=== PATIENT | male | born 1960 | race Caucasian/White ===

== ENCOUNTER 2018-12-08 16:29 | Inpatient (IN) | payer MEDICAID, OTHER ==
[~2018-12-08 16:29] MED LIST: ETOMIDATE 20 MG INJ; ROCURONIUM 50 MG INJ
[2018-12-08 17:23] LABS: ABNORMAL IP MESSAGE 1; HEMATOCRIT 32.2 % (42.0-52.0); HEMOGLOBIN 10.7 g/dl (14.0-18.0); MEAN CORPUSCULAR HEMOGLOBIN 32.9 pg (29.0-33.0); MEAN CORPUSCULAR HGB CONC 33.2 g/dl (32.0-37.0); MEAN CORPUSCULAR VOLUME 99.1 fl (82.0-101.0); MEAN PLATELET VOLUME 10.7 fl (7.4-10.4); PLATELET COUNT 36 10^3/UL (140-415); POSITIVE DIFF @See below; RED BLOOD COUNT 3.25 10^6/ul (4.70-6.10)
[2018-12-08 17:23] LABS: WHITE BLOOD COUNT 3.7 10^3/ul (4.8-10.8)
[2018-12-08 17:33] LABS: ADD MAN DIFF? YES; PATH REVIEW? YES
[2018-12-08] MEDS: SOD CHLORIDE 0.9% 2,430 ML IV (17:40)
[2018-12-08 17:43] LABS: INR 2.18; PARTIAL THROMBOPLASTIN TIME 40.5 Sec (23.0-35.0); PROTIME 24.3 Sec (11.9-14.9); PT RATIO 1.9
[2018-12-08] MEDS: PIPER-TAZO 3.375 GM IV (PMX) 100 ML IVPB (17:43)
[2018-12-08 17:56] LABS: AMMONIA 283 umol/l (9-30)
[2018-12-08 17:57] LABS: ALANINE AMINOTRANSFERASE 41 IU/L (13-69); ALBUMIN 2.5 g/dl (3.3-4.9); ALBUMIN/GLOBULIN RATIO 0.62; ALKALINE PHOSPHATASE 188 IU/L (42-121); ANION GAP 9 (5-13); ASPARTATE AMINO TRANSFERASE 53 IU/L (15-46); BILIRUBIN,INDIRECT 3.1 mg/dl (0-1.1); BILIRUBIN,TOTAL 3.1 mg/dl (0.2-1.3); BLOOD UREA NITROGEN 16 mg/dl (7-20); CALCIUM 8.1 mg/dl (8.4-10.2); CARBON DIOXIDE 18 mmol/L (21-31); CHLORIDE 113 mmol/L (97-110); CREATININE 0.54 mg/dl (0.61-1.24); Estimated GFR > 60 mL/min (>60); GLUCOSE 121 mg/dl (70-220); POTASSIUM 4.6 mmol/L (3.5-5.1); SODIUM 140 mmol/L (135-144); TOTAL PROTEIN 6.5 g/dl (6.1-8.1)
[2018-12-08 18:03] LABS: ETHANOL < 10.0 mg/dl (0-0)
[2018-12-08 18:08] LABS: TROPONIN-I < 0.012 ng/ml (0.000-0.120)
[2018-12-08 18:31] LABS: ANISOCYTOSIS 1+ (0-0); BAND NEUTROPHILS % (M) 1 % (0-4); EOSINOPHILS % (M) 3 % (0-7); GIANT THROMBO% (M) 4 % (0-0); LYMPHOCYTES #M 0.2 10^3/ul (0.8-2.9); LYMPHOCYTES % (M) 8 % (15-51); MONOCYTE #M 0.5 10^3/ul (0.3-0.9); MONOCYTES % (M) 15 % (0-11); PLATELET ESTIMATE SIG DECREASED; PLATELET MORPHOLOGY COMMENT @See below; POIKILOCYTOSIS 3+ (0-0); SEG NEUT #M 2.7 10^3/ul (1.6-7.5); SEGMENTED NEUTROPHILS (M) % 73 % (39-77); SMUDGE%M 15 % (0-0)
[2018-12-08] MEDS: MIDAZOLAM 1 MG/ML 2 ML INJ IV (18:56)
[2018-12-08] MEDS: HUMAN PROTHROMBIN COMPLX IV (22:08)
[2018-12-08] MEDS: EVAC CONTAINER IV (22:08)
[2018-12-08 22:38] LABS: AADO2 Arterial 352.7 mmHg (7.0-24.0); Allen Test ACCEPTAB; Arterial Base Excess -3.6 mmol/L (-3.0-3); Arterial Blood Gas Oxygen Sat 99.3 mmHG (95.0-98.0); Arterial COHb 0.3 % (0.0-3.0); Arterial Fraction of Oxyhgb 98.8 % (93.0-99.0); Arterial HCO3 17.9 mmol/L (22.0-26.0); Arterial MetHb 0.2 % (0.0-1.5); Arterial pCO2 22.7 mmhg (35-45); Blood Gas Low PEEP Setting 0 cmH2O; MODE VENT - AC; Site Left Radial
[2018-12-08 22:46] LABS: ADD UMIC NO; UR ASCORBIC ACID NEGATIVE (NEGATIVE); UR BILIRUBIN (Dip) NEGATIVE (NEGATIVE); UR BLOOD (Dip) NEGATIVE (NEGATIVE); UR CLARITY CLEAR (CLEAR); UR COLOR YELLOW (YELLOW); UR GLUCOSE (Dip) NEGATIVE (NEGATIVE); UR KETONES (Dip) NEGATIVE (NEGATIVE); UR LEUKOCYTE ESTERASE (Dip) NEGATIVE Leu/ul (NEGATIVE); UR NITRITE (Dip) NEGATIVE (NEGATIVE); UR TOTAL PROTEIN (Dip) NEGATIVE (NEGATIVE); UR UROBILINOGEN (Dip) 1+ mg/dL (NEGATIVE)
[2018-12-08 22:53] LABS: LACTIC ACID 2.3 mmol/L (0.5-2.0)
[2018-12-08] MEDS ORDERED: IPRATROPIUM (HFA) 12.9 GM INHALER INH (23:00)
[2018-12-08] MEDS ORDERED: ALBUTEROL HFA 8 GM INHALER INH (23:00)
[2018-12-08] MEDS: PROPOFOL 100 ML IV (23:02)
[2018-12-08 23:34] LABS: AMPHETAMINE/METHAMPHETAMINE NEGATIVE (NEGATIVE); BARBITURATES NEGATIVE (NEGATIVE); BENZODIAZEPINES POSITIVE (NEGATIVE); CANNABINOIDS NEGATIVE (NEGATIVE); COCAINE NEGATIVE (NEGATIVE); OPIATES NEGATIVE (NEGATIVE)
[2018-12-09] MEDS: LACTULOSE 30ML CUP NGT ×4 (00:29→22:15)
[2018-12-09 04:30] LABS: TYPE AND SCREEN 1 1
[2018-12-09] MEDS: PHYTONADIONE 5 MG in DEXTROSE 5% 50 ML IVPB (05:10)
[2018-12-09] MEDS: PANTOPRAZOLE 40 MG INJ IV (05:15)
[2018-12-09] MEDS: PROPOFOL 100 ML IV ×3 (05:47→20:50)
[2018-12-09 06:11] LABS: TYPE AND SCREEN 1
[2018-12-09 06:18] LABS: AADO2 Arterial 94.2 mmHg (7.0-24.0); Allen Test ACCEPTAB; Arterial Base Excess -2.9 mmol/L (-3.0-3); Arterial Blood Gas Oxygen Sat 98.6 mmHG (95.0-98.0); Arterial COHb 0.3 % (0.0-3.0); Arterial HCO3 19.8 mmol/L (22.0-26.0); Arterial MetHb 0.3 % (0.0-1.5); Arterial pCO2 27.2 mmhg (35-45); MODE VENT - AC; Site Right Radial
[2018-12-09 08:59] LABS: ADD MAN DIFF? NO
[2018-12-09 09:03] LABS: ABNORMAL IP MESSAGE 1; BASOPHILS % 0.8 % (0.0-2.0); EOSINOPHILS # 0.2 10^3/ul (0.0-0.5); EOSINOPHILS % 5.7 % (0.0-7.0); HEMATOCRIT 27.2 % (42.0-52.0); HEMOGLOBIN 8.6 g/dl (14.0-18.0); LYMPHOCYTES # 0.4 10^3/ul (0.8-2.9); LYMPHOCYTES % 14.2 % (15.0-51.0); MEAN CORPUSCULAR HEMOGLOBIN 32.5 pg (29.0-33.0); MEAN CORPUSCULAR HGB CONC 31.6 g/dl (32.0-37.0); MEAN CORPUSCULAR VOLUME 102.6 fl (82.0-101.0); MEAN PLATELET VOLUME 11.1 fl (7.4-10.4); MONOCYTE # 0.4 10^3/ul (0.3-0.9); MONOCYTES % 15.7 % (0.0-11.0); NEUTROPHIL # 1.7 10^3/ul (1.6-7.5); NEUTROPHILS % 63.2 % (39.0-77.0); PLATELET COUNT 38 10^3/UL (140-415); POSITIVE DIFF @See below; RED BLOOD COUNT 2.65 10^6/ul (4.70-6.10); RED CELL DISTRIBUTION WIDTH 17.7 % (11.5-14.5)
[2018-12-09 09:03] LABS: WHITE BLOOD COUNT 2.6 10^3/ul (4.8-10.8)
[2018-12-09 09:21] LABS: IRON 62 ug/dl (35-150)
[2018-12-09 09:22] LABS: INR 1.56; PROTIME 18.8 Sec (11.9-14.9); PT RATIO 1.5
[2018-12-09 09:23] LABS: PARTIAL THROMBOPLASTIN TIME 39.4 Sec (23.0-35.0)
[2018-12-09 09:31] LABS: % IRON SATURATION 24 % SAT (22-52); TOTAL IRON BINDING CAPACITY 262 ug/dl (241-421)
[2018-12-09 09:33] LABS: ALANINE AMINOTRANSFERASE 38 IU/L (13-69); ALBUMIN 2.6 g/dl (3.3-4.9); ALKALINE PHOSPHATASE 144 IU/L (42-121); ANION GAP 7 (5-13); ASPARTATE AMINO TRANSFERASE 49 IU/L (15-46); BILIRUBIN,INDIRECT 2.9 mg/dl (0-1.1); BILIRUBIN,TOTAL 2.9 mg/dl (0.2-1.3); BLOOD UREA NITROGEN 15 mg/dl (7-20); CALCIUM 8.3 mg/dl (8.4-10.2); CARBON DIOXIDE 19 mmol/L (21-31); CHLORIDE 116 mmol/L (97-110); Estimated GFR > 60 mL/min (>60); GLUCOSE 70 mg/dl (70-220); MAGNESIUM 1.9 mg/dl (1.7-2.5); PHOSPHORUS 3.8 mg/dl (2.5-4.9); SODIUM 142 mmol/L (135-144); TOTAL PROTEIN 6.3 g/dl (6.1-8.1)
[2018-12-09 09:58] LABS: FERRITIN 50.8 ng/ml (11.1-264.0)
[2018-12-09 10:28] LABS: LACTIC ACID 1.9 mmol/L (0.5-2.0)
[2018-12-09 10:28] LABS: FOLATE 10.7 ng/ml (2.8-20.0)
[2018-12-09 16:00] LABS: WHITE BLOOD COUNT 2.8 10^3/ul (4.8-10.8)
[2018-12-09 16:00] LABS: ABNORMAL IP MESSAGE 1; HEMOGLOBIN 9.6 g/dl (14.0-18.0); MEAN CORPUSCULAR HEMOGLOBIN 33.2 pg (29.0-33.0); MEAN CORPUSCULAR VOLUME 103.8 fl (82.0-101.0); MEAN PLATELET VOLUME 10.6 fl (7.4-10.4); PLATELET COUNT 62 10^3/UL (140-415); POSITIVE DIFF @See below; RED BLOOD COUNT 2.89 10^6/ul (4.70-6.10); RED CELL DISTRIBUTION WIDTH 17.4 % (11.5-14.5)
[2018-12-09 16:17] LABS: ADD MAN DIFF? YES
[2018-12-09 16:59] LABS: ANISOCYTOSIS 1+ (0-0); BAND NEUTROPHILS % (M) 1 % (0-4); BURR CELLS 1+ (0-0); EOSINOPHILS % (M) 10 % (0-7); LYMPHOCYTES #M 0.3 10^3/ul (0.8-2.9); LYMPHOCYTES % (M) 13 % (15-51); MONOCYTE #M 0.3 10^3/ul (0.3-0.9); MONOCYTES % (M) 13 % (0-11); POIKILOCYTOSIS 3+ (0-0); POLYCHROMASIA 1+ (0-0); SEG NEUT #M 1.6 10^3/ul (1.6-7.5); SEGMENTED NEUTROPHILS (M) % 62 % (39-77); SMUDGE%M 16 % (0-0)
[2018-12-10] MEDS: LACTULOSE 30ML CUP NGT ×5 (01:13→23:50)
[2018-12-10 05:35] LABS: WHITE BLOOD COUNT 2.5 10^3/ul (4.8-10.8)
[2018-12-10 05:35] LABS: ABNORMAL IP MESSAGE 1; ADD MAN DIFF? NO; BASOPHILS % 1.2 % (0.0-2.0); EOSINOPHILS # 0.1 10^3/ul (0.0-0.5); EOSINOPHILS % 5.2 % (0.0-7.0); HEMATOCRIT 28.1 % (42.0-52.0); HEMOGLOBIN 9.1 g/dl (14.0-18.0); LYMPHOCYTES # 0.4 10^3/ul (0.8-2.9); LYMPHOCYTES % 15.2 % (15.0-51.0); MEAN CORPUSCULAR HEMOGLOBIN 33.2 pg (29.0-33.0); MEAN CORPUSCULAR HGB CONC 32.4 g/dl (32.0-37.0); MEAN CORPUSCULAR VOLUME 102.6 fl (82.0-101.0); MEAN PLATELET VOLUME 11.1 fl (7.4-10.4); MONOCYTE # 0.4 10^3/ul (0.3-0.9); MONOCYTES % 17.6 % (0.0-11.0); NEUTROPHIL # 1.5 10^3/ul (1.6-7.5); NEUTROPHILS % 60.4 % (39.0-77.0); PLATELET COUNT 53 10^3/UL (140-415); POSITIVE DIFF @See below; RED BLOOD COUNT 2.74 10^6/ul (4.70-6.10); RED CELL DISTRIBUTION WIDTH 17.2 % (11.5-14.5)
[2018-12-10 05:43] LABS: INR 1.68; PROTIME 19.9 Sec (11.9-14.9); PT RATIO 1.6
[2018-12-10] MEDS: PANTOPRAZOLE 40 MG INJ IV (05:48)
[2018-12-10 06:04] LABS: AMMONIA 83 umol/l (9-30)
[2018-12-10 07:35] LABS: Allen Test ACCEPTAB; Arterial Base Excess -3.3 mmol/L (-3.0-3); Arterial Blood Gas Oxygen Sat 97.6 mmHG (95.0-98.0); Arterial COHb 0.3 % (0.0-3.0); Arterial Fraction of Oxyhgb 97.2 % (93.0-99.0); Arterial HCO3 19.9 mmol/L (22.0-26.0); Arterial MetHb 0.1 % (0.0-1.5); Arterial pCO2 29.3 mmhg (35-45); MODE VENT - AC; Site Right Radial
[2018-12-10 10:30] LABS: MAGNESIUM 1.8 mg/dl (1.7-2.5)
[2018-12-10 10:30] LABS: PHOSPHORUS 4.3 mg/dl (2.5-4.9)
[2018-12-10 10:31] LABS: ANION GAP 7 (5-13); BLOOD UREA NITROGEN 17 mg/dl (7-20); CALCIUM 8.5 mg/dl (8.4-10.2); CARBON DIOXIDE 19 mmol/L (21-31); CHLORIDE 118 mmol/L (97-110); CREATININE 0.61 mg/dl (0.61-1.24); Estimated GFR > 60 mL/min (>60); GLUCOSE 84 mg/dl (70-220); POTASSIUM 3.7 mmol/L (3.5-5.1); SODIUM 144 mmol/L (135-144)
[2018-12-10] MEDS: MULTIVITAMINS 30 ML CUP NGT (14:05)
[2018-12-10] MEDS: PROPOFOL 100 ML IV ×2 (14:05→23:50)
[2018-12-10] MEDS: FUROSEMIDE 40 MG INJ IV (14:05)
[2018-12-10] MEDS: RIFAXIMIN 200 MG TAB PO ×2 (14:09→21:00)
[2018-12-10] MEDS: LEVETIRACETAM 1000 MG (PMX) 100 ML IVPB ×2 (15:45→23:50)
[2018-12-10] MEDS ORDERED: GLUCOSE GEL 15 GRAM TUBE BUCCAL (20:00)
[2018-12-10] MEDS ORDERED: GLUCAGON 1 MG INJ IM (20:00)
[2018-12-10] MEDS ORDERED: GLUCOSE GEL 15 GRAM TUBE PO ×2 (20:00)
[2018-12-10] MEDS ORDERED: DEXTROSE 50% 50 ML SYRINGE IV ×2 (20:00)
[2018-12-10] MEDS: INSULIN ASPART [NOVOLOG] 3 ML PEN SC (21:00)
[2018-12-11] MEDS: INSULIN ASPART [NOVOLOG] 3 ML PEN SC ×2 (01:00→05:00)
[2018-12-11 05:37] LABS: ADD MAN DIFF? NO
[2018-12-11 05:39] LABS: AMMONIA 80 umol/l (9-30)
[2018-12-11] MEDS: LACTULOSE 30ML CUP NGT ×3 (05:49→19:03)
[2018-12-11] MEDS: PANTOPRAZOLE 40 MG INJ IV (05:49)
[2018-12-11 05:52] LABS: ABNORMAL IP MESSAGE 1; BASOPHILS % 0.9 % (0.0-2.0); EOSINOPHILS # 0.2 10^3/ul (0.0-0.5); EOSINOPHILS % 5.1 % (0.0-7.0); HEMATOCRIT 39.6 % (42.0-52.0); HEMOGLOBIN 13.2 g/dl (14.0-18.0); LYMPHOCYTES # 0.5 10^3/ul (0.8-2.9); LYMPHOCYTES % 15.1 % (15.0-51.0); MEAN CORPUSCULAR HEMOGLOBIN 33.5 pg (29.0-33.0); MEAN CORPUSCULAR HGB CONC 33.3 g/dl (32.0-37.0); MEAN CORPUSCULAR VOLUME 100.5 fl (82.0-101.0); MEAN PLATELET VOLUME 11.6 fl (7.4-10.4); MONOCYTE # 0.8 10^3/ul (0.3-0.9); MONOCYTES % 21.4 % (0.0-11.0); NEUTROPHILS % 56.6 % (39.0-77.0); PLATELET COUNT 52 10^3/UL (140-415); POSITIVE DIFF @See below; RED BLOOD COUNT 3.94 10^6/ul (4.70-6.10); RED CELL DISTRIBUTION WIDTH 16.7 % (11.5-14.5)
[2018-12-11 05:52] LABS: WHITE BLOOD COUNT 3.5 10^3/ul (4.8-10.8)
[2018-12-11 06:35] LABS: ANION GAP 7 (5-13); BLOOD UREA NITROGEN 17 mg/dl (7-20); CARBON DIOXIDE 22 mmol/L (21-31); CHLORIDE 113 mmol/L (97-110); CREATININE 0.55 mg/dl (0.61-1.24); Estimated GFR > 60 mL/min (>60); GLUCOSE 92 mg/dl (70-220); MAGNESIUM 1.7 mg/dl (1.7-2.5); PHOSPHORUS 4.5 mg/dl (2.5-4.9); POTASSIUM 3.7 mmol/L (3.5-5.1); SODIUM 142 mmol/L (135-144)
[2018-12-11] MEDS: FUROSEMIDE 40 MG INJ IV (10:40)
[2018-12-11] MEDS: MULTIVITAMINS 30 ML CUP NGT (10:40)
[2018-12-11] MEDS: RIFAXIMIN 200 MG TAB PO ×2 (10:40→20:56)
[2018-12-11] MEDS: LEVETIRACETAM 1000 MG (PMX) 100 ML IVPB ×2 (10:40→20:56)
[2018-12-11 11:21] LABS: ADD MAN DIFF? NO
[2018-12-11 11:25] LABS: ABNORMAL IP MESSAGE 1; BASOPHILS % 0.9 % (0.0-2.0); EOSINOPHILS # 0.2 10^3/ul (0.0-0.5); EOSINOPHILS % 5.8 % (0.0-7.0); HEMATOCRIT 31.5 % (42.0-52.0); HEMOGLOBIN 10.4 g/dl (14.0-18.0); LYMPHOCYTES # 0.5 10^3/ul (0.8-2.9); MEAN CORPUSCULAR HEMOGLOBIN 33.3 pg (29.0-33.0); MEAN PLATELET VOLUME 10.8 fl (7.4-10.4); MONOCYTE # 0.6 10^3/ul (0.3-0.9); MONOCYTES % 18.7 % (0.0-11.0); NEUTROPHIL # 1.9 10^3/ul (1.6-7.5); NEUTROPHILS % 58.3 % (39.0-77.0); POSITIVE DIFF @See below; RED BLOOD COUNT 3.12 10^6/ul (4.70-6.10); RED CELL DISTRIBUTION WIDTH 16.7 % (11.5-14.5)
[2018-12-11 11:25] LABS: WHITE BLOOD COUNT 3.3 10^3/ul (4.8-10.8)
[2018-12-11 11:26] LABS: PLATELET COUNT 50 10^3/UL (140-415)
[2018-12-11 11:45] LABS: HEMOGLOBIN A1C 4.3 % (0-5.9)
[2018-12-11] MEDS: DEXMEDETOMIDINE HCL 200 MCG in SOD CHLORIDE 0.9% 48 ML IV (12:32)
[2018-12-11 12:33] LABS: ALPHA FETOPROTEIN 2.21 IU/L (0.00-7.21)
[2018-12-11 13:11] LABS: AADO2 Arterial 80.7 mmHg (7.0-24.0); Arterial Base Excess 0.2 mmol/L (-3.0-3); Arterial Blood Gas Oxygen Sat 96.8 mmHG (95.0-98.0); Arterial COHb 0.3 % (0.0-3.0); Arterial Fraction of Oxyhgb 96.4 % (93.0-99.0); Arterial HCO3 23.3 mmol/L (22.0-26.0); Arterial MetHb 0.1 % (0.0-1.5); Arterial pCO2 32.7 mmhg (35-45); Blood Gas PS 10; MODE VENT - CPAP; Site Right Brachial
[2018-12-12] MEDS: LACTULOSE 30ML CUP NGT ×5 (00:44→21:03)
[2018-12-12] MEDS: ALBUMIN HUMAN 25% 100 ML IV (03:34)
[2018-12-12] MEDS: DEXMEDETOMIDINE HCL 200 MCG in SOD CHLORIDE 0.9% 48 ML IV (04:02)
[2018-12-12 05:24] LABS: ADD MAN DIFF? NO
[2018-12-12 05:32] LABS: ABNORMAL IP MESSAGE 1; BASOPHILS % 0.8 % (0.0-2.0); EOSINOPHILS # 0.2 10^3/ul (0.0-0.5); HEMATOCRIT 29.7 % (42.0-52.0); HEMOGLOBIN 9.9 g/dl (14.0-18.0); LYMPHOCYTES # 0.4 10^3/ul (0.8-2.9); LYMPHOCYTES % 11.1 % (15.0-51.0); MEAN CORPUSCULAR HEMOGLOBIN 33.3 pg (29.0-33.0); MEAN CORPUSCULAR HGB CONC 33.3 g/dl (32.0-37.0); MEAN PLATELET VOLUME 11.7 fl (7.4-10.4); MONOCYTE # 0.6 10^3/ul (0.3-0.9); MONOCYTES % 17.5 % (0.0-11.0); NEUTROPHIL # 2.4 10^3/ul (1.6-7.5); PLATELET COUNT 45 10^3/UL (140-415); POSITIVE DIFF @See below; RED BLOOD COUNT 2.97 10^6/ul (4.70-6.10); RED CELL DISTRIBUTION WIDTH 16.3 % (11.5-14.5)
[2018-12-12 05:32] LABS: WHITE BLOOD COUNT 3.6 10^3/ul (4.8-10.8)
[2018-12-12 06:03] LABS: ANION GAP 4 (5-13); BLOOD UREA NITROGEN 18 mg/dl (7-20); CALCIUM 8.1 mg/dl (8.4-10.2); CARBON DIOXIDE 24 mmol/L (21-31); CHLORIDE 115 mmol/L (97-110); CREATININE 0.54 mg/dl (0.61-1.24); Estimated GFR > 60 mL/min (>60); GLUCOSE 109 mg/dl (70-220); POTASSIUM 3.4 mmol/L (3.5-5.1); SODIUM 143 mmol/L (135-144)
[2018-12-12] MEDS: PANTOPRAZOLE 40 MG INJ IV (06:03)
[2018-12-12 06:11] LABS: AMMONIA 134 umol/l (9-30)
[2018-12-12] MEDS: RIFAXIMIN 200 MG TAB PO ×2 (09:04→21:02)
[2018-12-12] MEDS: LEVETIRACETAM 1000 MG (PMX) 100 ML IVPB ×2 (09:04→21:02)
[2018-12-12] MEDS: MULTIVITAMINS 30 ML CUP NGT (09:04)
[2018-12-12] MEDS: FUROSEMIDE 40 MG INJ IV (09:05)
[2018-12-12] MEDS: LIDOCAINE 1% (MPF) 5 ML VIAL SC (12:30)
[2018-12-13] MEDS: LACTULOSE 30ML CUP NGT ×5 (00:18→21:52)
[2018-12-13] MEDS: DEXMEDETOMIDINE HCL 200 MCG in SOD CHLORIDE 0.9% 48 ML IV (04:02)
[2018-12-13] MEDS: PANTOPRAZOLE 40 MG INJ IV (05:14)
[2018-12-13 05:20] LABS: ADD MAN DIFF? NO
[2018-12-13 05:24] LABS: ABNORMAL IP MESSAGE 1; BASOPHILS % 0.6 % (0.0-2.0); EOSINOPHILS # 0.2 10^3/ul (0.0-0.5); EOSINOPHILS % 6.6 % (0.0-7.0); HEMATOCRIT 26.9 % (42.0-52.0); HEMOGLOBIN 8.9 g/dl (14.0-18.0); LYMPHOCYTES # 0.4 10^3/ul (0.8-2.9); LYMPHOCYTES % 11.5 % (15.0-51.0); MEAN CORPUSCULAR HEMOGLOBIN 32.8 pg (29.0-33.0); MEAN CORPUSCULAR HGB CONC 33.1 g/dl (32.0-37.0); MEAN CORPUSCULAR VOLUME 99.3 fl (82.0-101.0); MEAN PLATELET VOLUME 11.3 fl (7.4-10.4); MONOCYTE # 0.5 10^3/ul (0.3-0.9); NEUTROPHIL # 2.1 10^3/ul (1.6-7.5); NEUTROPHILS % 64.7 % (39.0-77.0); PLATELET COUNT 40 10^3/UL (140-415); POSITIVE DIFF @See below; RED BLOOD COUNT 2.71 10^6/ul (4.70-6.10); RED CELL DISTRIBUTION WIDTH 16.1 % (11.5-14.5)
[2018-12-13 05:24] LABS: WHITE BLOOD COUNT 3.3 10^3/ul (4.8-10.8)
[2018-12-13 05:55] LABS: AMMONIA 96 umol/l (9-30)
[2018-12-13 05:56] LABS: ANION GAP 5 (5-13); BLOOD UREA NITROGEN 18 mg/dl (7-20); CALCIUM 8.3 mg/dl (8.4-10.2); CARBON DIOXIDE 24 mmol/L (21-31); CHLORIDE 114 mmol/L (97-110); CREATININE 0.48 mg/dl (0.61-1.24); Estimated GFR > 60 mL/min (>60); GLUCOSE 126 mg/dl (70-220); POTASSIUM 3.1 mmol/L (3.5-5.1); SODIUM 143 mmol/L (135-144)
[2018-12-13 05:57] LABS: PHOSPHORUS 3.4 mg/dl (2.5-4.9)
[2018-12-13 05:57] LABS: MAGNESIUM 1.8 mg/dl (1.7-2.5)
[2018-12-13] MEDS: FUROSEMIDE 40 MG INJ IV ×2 (09:00)
[2018-12-13] MEDS: LIDOCAINE 1% (MPF) 5 ML VIAL SC (10:11)
[2018-12-13] MEDS: MULTIVITAMINS 30 ML CUP NGT (10:24)
[2018-12-13] MEDS: LEVETIRACETAM 1000 MG (PMX) 100 ML IVPB ×2 (10:24→21:52)
[2018-12-13] MEDS: RIFAXIMIN 200 MG TAB PO ×2 (10:24→21:52)
[2018-12-13] MEDS: POTASSIUM CHLORIDE 50 ML IVPB ×2 (11:27→13:21)
[2018-12-13 11:29] LABS: AADO2 Arterial 82.4 mmHg (7.0-24.0); Allen Test ACCEPTAB; Arterial Base Excess 1.3 mmol/L (-3.0-3); Arterial Blood Gas Oxygen Sat 96.2 mmHG (95.0-98.0); Arterial COHb 0.3 % (0.0-3.0); Arterial Fraction of Oxyhgb 95.7 % (93.0-99.0); Arterial MetHb 0.2 % (0.0-1.5); Arterial pCO2 36.1 mmhg (35-45); Blood Gas PS 10; MODE VENT - CPAP; Site Left Radial
[2018-12-13] MEDS: ALBUMIN HUMAN 25% 50 ML IV (23:20)
[2018-12-14] MEDS: LACTULOSE 30ML CUP NGT ×6 (01:00→21:05)
[2018-12-14 05:23] LABS: WHITE BLOOD COUNT 3.1 10^3/ul (4.8-10.8)
[2018-12-14 05:23] LABS: ABNORMAL IP MESSAGE 1; ADD MAN DIFF? NO; BASOPHILS % 0.6 % (0.0-2.0); EOSINOPHILS # 0.3 10^3/ul (0.0-0.5); EOSINOPHILS % 8.8 % (0.0-7.0); HEMATOCRIT 27.3 % (42.0-52.0); LYMPHOCYTES # 0.6 10^3/ul (0.8-2.9); LYMPHOCYTES % 18.5 % (15.0-51.0); MEAN CORPUSCULAR HEMOGLOBIN 33.5 pg (29.0-33.0); MEAN CORPUSCULAR VOLUME 101.5 fl (82.0-101.0); MEAN PLATELET VOLUME 11.3 fl (7.4-10.4); MONOCYTE # 0.5 10^3/ul (0.3-0.9); MONOCYTES % 15.3 % (0.0-11.0); NEUTROPHIL # 1.7 10^3/ul (1.6-7.5); NEUTROPHILS % 56.2 % (39.0-77.0); PLATELET COUNT 40 10^3/UL (140-415); POSITIVE DIFF @See below; RED BLOOD COUNT 2.69 10^6/ul (4.70-6.10); RED CELL DISTRIBUTION WIDTH 16.5 % (11.5-14.5)
[2018-12-14 05:41] LABS: AMMONIA 80 umol/l (9-30)
[2018-12-14 05:45] LABS: ANION GAP 5 (5-13); BLOOD UREA NITROGEN 19 mg/dl (7-20); CALCIUM 8.1 mg/dl (8.4-10.2); CARBON DIOXIDE 25 mmol/L (21-31); CHLORIDE 113 mmol/L (97-110); CREATININE 0.47 mg/dl (0.61-1.24); Estimated GFR > 60 mL/min (>60); GLUCOSE 78 mg/dl (70-220); POTASSIUM 3.3 mmol/L (3.5-5.1); SODIUM 143 mmol/L (135-144)
[2018-12-14] MEDS: PANTOPRAZOLE 40 MG INJ IV (05:55)
[2018-12-14 06:09] LABS: MAGNESIUM 1.8 mg/dl (1.7-2.5)
[2018-12-14 06:09] LABS: PHOSPHORUS 3.5 mg/dl (2.5-4.9)
[2018-12-14] MEDS: MULTIVITAMINS 30 ML CUP NGT (08:32)
[2018-12-14] MEDS: RIFAXIMIN 200 MG TAB PO ×2 (08:32→21:05)
[2018-12-14] MEDS: FUROSEMIDE 40 MG INJ IV (08:33)
[2018-12-14] MEDS: LEVETIRACETAM 1000 MG (PMX) 100 ML IVPB ×2 (08:34→21:04)
[2018-12-14] MEDS: POTASSIUM CHLORIDE 100 ML IVPB ×2 (09:27→14:11)
[2018-12-14] MEDS: MAGNESIUM SULFATE 2 GM/50 ML 50 ML IVPB (12:00)
[2018-12-15] MEDS: LACTULOSE 30ML CUP NGT ×6 (01:08→21:05)
[2018-12-15] MEDS: LANSOPRAZOLE 30 MG CAP GTB (05:41)
[2018-12-15 06:17] LABS: ANION GAP 3 (5-13); BLOOD UREA NITROGEN 16 mg/dl (7-20); CALCIUM 8.1 mg/dl (8.4-10.2); CARBON DIOXIDE 25 mmol/L (21-31); CHLORIDE 114 mmol/L (97-110); CREATININE 0.47 mg/dl (0.61-1.24); Estimated GFR > 60 mL/min (>60); GLUCOSE 88 mg/dl (70-220); POTASSIUM 3.3 mmol/L (3.5-5.1); SODIUM 142 mmol/L (135-144)
[2018-12-15] MEDS: RIFAXIMIN 200 MG TAB PO ×2 (08:57→21:05)
[2018-12-15] MEDS: MULTIVITAMINS 30 ML CUP NGT (08:58)
[2018-12-15] MEDS: FUROSEMIDE 40 MG INJ IV (08:59)
[2018-12-15] MEDS: LEVETIRACETAM 1000 MG (PMX) 100 ML IVPB ×2 (09:17→20:49)
[2018-12-15 11:14] LABS: OCCULT BLOOD STOOL NEGATIVE (NEGATIVE)
[2018-12-16] MEDS: LACTULOSE 30ML CUP NGT ×4 (01:00→13:30)
[2018-12-16] MEDS: LANSOPRAZOLE 30 MG CAP GTB (05:50)
[2018-12-16 06:40] LABS: ANION GAP 6 (5-13); BLOOD UREA NITROGEN 15 mg/dl (7-20); CALCIUM 8.1 mg/dl (8.4-10.2); CARBON DIOXIDE 27 mmol/L (21-31); CHLORIDE 111 mmol/L (97-110); CREATININE 0.52 mg/dl (0.61-1.24); Estimated GFR > 60 mL/min (>60); GLUCOSE 94 mg/dl (70-220); SODIUM 144 mmol/L (135-144)
[2018-12-16] MEDS: RIFAXIMIN 200 MG TAB PO (08:39)
[2018-12-16] MEDS: LEVETIRACETAM 1000 MG (PMX) 100 ML IVPB ×2 (08:39→20:03)
[2018-12-16] MEDS: FUROSEMIDE 40 MG INJ IV (08:39)
[2018-12-16] MEDS: MULTIVITAMINS 30 ML CUP NGT (08:40)
[2018-12-16] MEDS: POTASSIUM CHLORIDE 50 ML IVPB ×3 (09:25→12:04)
[2018-12-16] MEDS: MAGNESIUM SULFATE 2 GM/50 ML 50 ML IVPB (11:11)
[2018-12-17 05:32] LABS: ADD MAN DIFF? NO
[2018-12-17 05:58] LABS: ANION GAP 4 (5-13); BLOOD UREA NITROGEN 15 mg/dl (7-20); CALCIUM 7.6 mg/dl (8.4-10.2); CARBON DIOXIDE 29 mmol/L (21-31); CHLORIDE 107 mmol/L (97-110); CREATININE 0.42 mg/dl (0.61-1.24); Estimated GFR > 60 mL/min (>60); GLUCOSE 84 mg/dl (70-220); MAGNESIUM 1.9 mg/dl (1.7-2.5); PHOSPHORUS 3.5 mg/dl (2.5-4.9); SODIUM 140 mmol/L (135-144)
[2018-12-17 06:06] LABS: ABNORMAL IP MESSAGE 1; BASOPHILS % 1.3 % (0.0-2.0); EOSINOPHILS # 0.5 10^3/ul (0.0-0.5); EOSINOPHILS % 18.9 % (0.0-7.0); HEMATOCRIT 28.7 % (42.0-52.0); HEMOGLOBIN 9.4 g/dl (14.0-18.0); LYMPHOCYTES # 0.5 10^3/ul (0.8-2.9); LYMPHOCYTES % 19.3 % (15.0-51.0); MEAN CORPUSCULAR HEMOGLOBIN 33.5 pg (29.0-33.0); MEAN CORPUSCULAR HGB CONC 32.8 g/dl (32.0-37.0); MEAN CORPUSCULAR VOLUME 102.1 fl (82.0-101.0); MEAN PLATELET VOLUME 10.9 fl (7.4-10.4); MONOCYTE # 0.4 10^3/ul (0.3-0.9); MONOCYTES % 15.1 % (0.0-11.0); NEUTROPHIL # 1.1 10^3/ul (1.6-7.5); POSITIVE DIFF @See below; RED BLOOD COUNT 2.81 10^6/ul (4.70-6.10); RED CELL DISTRIBUTION WIDTH 16.9 % (11.5-14.5)
[2018-12-17 06:06] LABS: WHITE BLOOD COUNT 2.4 10^3/ul (4.8-10.8)
[2018-12-17 06:08] LABS: PLATELET COUNT 30 10^3/UL (140-415); POTASSIUM 2.9 mmol/L (3.5-5.1)
[2018-12-17] MEDS: LANSOPRAZOLE 30 MG CAP GTB (06:13)
[2018-12-17] MEDS ORDERED: POTASSIUM CITRATE (SR) 5 MEQ TAB PO (06:30)
[2018-12-17] MEDS: POTASSIUM CHLORIDE (SR) 20 MEQ TAB PO (07:03)
[2018-12-17] MEDS: MULTIVITAMINS 30 ML CUP NGT ×2 (09:00→09:48)
[2018-12-17] MEDS: LEVETIRACETAM 1000 MG (PMX) 100 ML IVPB ×2 (09:41→20:24)
[2018-12-17] MEDS: MAGNESIUM SULFATE 1 GM/D5W 100 ML IVPB (10:15)
[2018-12-18 05:53] LABS: ADD MAN DIFF? NO
[2018-12-18 06:03] LABS: ABNORMAL IP MESSAGE 1; BASOPHILS % 1.7 % (0.0-2.0); EOSINOPHILS # 0.3 10^3/ul (0.0-0.5); EOSINOPHILS % 14.7 % (0.0-7.0); HEMATOCRIT 28.6 % (42.0-52.0); HEMOGLOBIN 9.5 g/dl (14.0-18.0); LYMPHOCYTES # 0.5 10^3/ul (0.8-2.9); LYMPHOCYTES % 19.5 % (15.0-51.0); MEAN CORPUSCULAR HEMOGLOBIN 33.5 pg (29.0-33.0); MEAN CORPUSCULAR HGB CONC 33.2 g/dl (32.0-37.0); MEAN CORPUSCULAR VOLUME 100.7 fl (82.0-101.0); MEAN PLATELET VOLUME 11.7 fl (7.4-10.4); MONOCYTE # 0.3 10^3/ul (0.3-0.9); MONOCYTES % 11.7 % (0.0-11.0); NEUTROPHIL # 1.2 10^3/ul (1.6-7.5); PLATELET COUNT 31 10^3/UL (140-415); POSITIVE DIFF @See below; RED BLOOD COUNT 2.84 10^6/ul (4.70-6.10); RED CELL DISTRIBUTION WIDTH 17.1 % (11.5-14.5)
[2018-12-18 06:03] LABS: WHITE BLOOD COUNT 2.3 10^3/ul (4.8-10.8)
[2018-12-18 06:32] LABS: ANION GAP 4 (5-13); BLOOD UREA NITROGEN 13 mg/dl (7-20); CALCIUM 7.9 mg/dl (8.4-10.2); CARBON DIOXIDE 24 mmol/L (21-31); CHLORIDE 111 mmol/L (97-110); Estimated GFR > 60 mL/min (>60); GLUCOSE 78 mg/dl (70-220); POTASSIUM 3.7 mmol/L (3.5-5.1); SODIUM 139 mmol/L (135-144)
[2018-12-18] MEDS: LANSOPRAZOLE 30 MG CAP GTB (06:39)
[2018-12-18] MEDS: MULTIVITAMINS 30 ML CUP NGT (09:16)
[2018-12-18] MEDS: LEVETIRACETAM 1000 MG (PMX) 100 ML IVPB ×2 (09:17→21:41)
[2018-12-19] MEDS: LANSOPRAZOLE 30 MG CAP GTB (05:43)
[2018-12-19 05:52] LABS: ADD MAN DIFF? NO
[2018-12-19 05:55] LABS: ABNORMAL IP MESSAGE 1; BASOPHILS % 0.4 % (0.0-2.0); EOSINOPHILS # 0.2 10^3/ul (0.0-0.5); EOSINOPHILS % 1.4 % (0.0-7.0); HEMATOCRIT 30.8 % (42.0-52.0); HEMOGLOBIN 10.1 g/dl (14.0-18.0); LYMPHOCYTES # 0.8 10^3/ul (0.8-2.9); LYMPHOCYTES % 7.7 % (15.0-51.0); MEAN CORPUSCULAR HEMOGLOBIN 32.9 pg (29.0-33.0); MEAN CORPUSCULAR HGB CONC 32.8 g/dl (32.0-37.0); MEAN CORPUSCULAR VOLUME 100.3 fl (82.0-101.0); MEAN PLATELET VOLUME 11.7 fl (7.4-10.4); MONOCYTE # 0.9 10^3/ul (0.3-0.9); MONOCYTES % 8.6 % (0.0-11.0); NEUTROPHIL # 8.5 10^3/ul (1.6-7.5); NEUTROPHILS % 81.4 % (39.0-77.0); PLATELET COUNT 33 10^3/UL (140-415); POSITIVE DIFF @See below; RED BLOOD COUNT 3.07 10^6/ul (4.70-6.10); RED CELL DISTRIBUTION WIDTH 17.9 % (11.5-14.5)
[2018-12-19 05:55] LABS: WHITE BLOOD COUNT 10.4 10^3/ul (4.8-10.8)
[2018-12-19 06:28] LABS: ANION GAP 7 (5-13); BLOOD UREA NITROGEN 13 mg/dl (7-20); CALCIUM 7.8 mg/dl (8.4-10.2); CARBON DIOXIDE 21 mmol/L (21-31); CHLORIDE 111 mmol/L (97-110); CREATININE 0.47 mg/dl (0.61-1.24); Estimated GFR > 60 mL/min (>60); GLUCOSE 77 mg/dl (70-220); MAGNESIUM 1.8 mg/dl (1.7-2.5); PHOSPHORUS 3.3 mg/dl (2.5-4.9); POTASSIUM 4.1 mmol/L (3.5-5.1); SODIUM 139 mmol/L (135-144)
[2018-12-19] MEDS: MULTIVITAMINS 30 ML CUP NGT (08:16)
[2018-12-19] MEDS: LEVETIRACETAM 1000 MG (PMX) 100 ML IVPB ×2 (08:17→21:21)
[2018-12-19] MEDS: LACTULOSE 30ML CUP PO ×3 (12:23→23:23)
[2018-12-20] MEDS: LANSOPRAZOLE 30 MG CAP GTB (06:00)
[2018-12-20 06:09] LABS: ADD MAN DIFF? NO
[2018-12-20 06:18] LABS: ABNORMAL IP MESSAGE 1; BASOPHIL # 0.1 10^3/ul (0.0-0.1); BASOPHILS % 0.9 % (0.0-2.0); EOSINOPHILS # 0.3 10^3/ul (0.0-0.5); EOSINOPHILS % 4.9 % (0.0-7.0); HEMATOCRIT 29.1 % (42.0-52.0); HEMOGLOBIN 9.6 g/dl (14.0-18.0); LYMPHOCYTES # 0.6 10^3/ul (0.8-2.9); LYMPHOCYTES % 10.2 % (15.0-51.0); MEAN CORPUSCULAR HEMOGLOBIN 33.4 pg (29.0-33.0); MEAN CORPUSCULAR VOLUME 101.4 fl (82.0-101.0); MONOCYTE # 0.9 10^3/ul (0.3-0.9); MONOCYTES % 15.5 % (0.0-11.0); NEUTROPHIL # 3.9 10^3/ul (1.6-7.5); POSITIVE DIFF @See below; RED BLOOD COUNT 2.87 10^6/ul (4.70-6.10); RED CELL DISTRIBUTION WIDTH 18.4 % (11.5-14.5)
[2018-12-20 06:18] LABS: WHITE BLOOD COUNT 5.7 10^3/ul (4.8-10.8)
[2018-12-20] MEDS: LACTULOSE 30ML CUP PO ×3 (06:38→18:00)
[2018-12-20 06:47] LABS: PLATELET COUNT 28 10^3/UL (140-415)
[2018-12-20 06:52] LABS: ANION GAP 7 (5-13); BLOOD UREA NITROGEN 15 mg/dl (7-20); CALCIUM 8.3 mg/dl (8.4-10.2); CARBON DIOXIDE 20 mmol/L (21-31); CHLORIDE 114 mmol/L (97-110); CREATININE 0.43 mg/dl (0.61-1.24); Estimated GFR > 60 mL/min (>60); GLUCOSE 78 mg/dl (70-220); POTASSIUM 3.4 mmol/L (3.5-5.1); SODIUM 141 mmol/L (135-144)
[2018-12-20] MEDS: LEVETIRACETAM 1000 MG (PMX) 100 ML IVPB ×2 (09:46→22:28)
[2018-12-20] MEDS: MULTIVITAMINS 30 ML CUP NGT (09:46)
[2018-12-20] MEDS: POTASSIUM CHLORIDE 20 MEQ POWDER FOR ORAL SOLN PO (12:52)
[2018-12-21] MEDS: LACTULOSE 30ML CUP PO ×2 (00:49→06:30)
[2018-12-21 05:55] LABS: ADD MAN DIFF? NO
[2018-12-21 05:59] LABS: ABNORMAL IP MESSAGE 1; BASOPHILS % 0.6 % (0.0-2.0); EOSINOPHILS # 0.3 10^3/ul (0.0-0.5); EOSINOPHILS % 8.3 % (0.0-7.0); HEMATOCRIT 28.6 % (42.0-52.0); HEMOGLOBIN 9.4 g/dl (14.0-18.0); LYMPHOCYTES # 0.5 10^3/ul (0.8-2.9); LYMPHOCYTES % 14.4 % (15.0-51.0); MEAN CORPUSCULAR HEMOGLOBIN 33.3 pg (29.0-33.0); MEAN CORPUSCULAR HGB CONC 32.9 g/dl (32.0-37.0); MEAN CORPUSCULAR VOLUME 101.4 fl (82.0-101.0); MEAN PLATELET VOLUME 11.4 fl (7.4-10.4); MONOCYTE # 0.4 10^3/ul (0.3-0.9); MONOCYTES % 13.5 % (0.0-11.0); NEUTROPHIL # 2.1 10^3/ul (1.6-7.5); NEUTROPHILS % 62.6 % (39.0-77.0); POSITIVE DIFF @See below; RED BLOOD COUNT 2.82 10^6/ul (4.70-6.10); RED CELL DISTRIBUTION WIDTH 18.6 % (11.5-14.5)
[2018-12-21 05:59] LABS: WHITE BLOOD COUNT 3.3 10^3/ul (4.8-10.8)
[2018-12-21] MEDS: LANSOPRAZOLE 30 MG CAP GTB (06:00)
[2018-12-21 06:13] LABS: PLATELET COUNT 32 10^3/UL (140-415)
[2018-12-21 06:26] LABS: ANION GAP 5 (5-13); BLOOD UREA NITROGEN 15 mg/dl (7-20); CALCIUM 8.2 mg/dl (8.4-10.2); CARBON DIOXIDE 19 mmol/L (21-31); CHLORIDE 116 mmol/L (97-110); CREATININE 0.42 mg/dl (0.61-1.24); Estimated GFR > 60 mL/min (>60); GLUCOSE 77 mg/dl (70-220); MAGNESIUM 1.9 mg/dl (1.7-2.5); PHOSPHORUS 3.3 mg/dl (2.5-4.9); POTASSIUM 3.8 mmol/L (3.5-5.1); SODIUM 140 mmol/L (135-144)
[2018-12-21] MEDS: LEVETIRACETAM 1000 MG (PMX) 100 ML IVPB ×2 (09:04→21:05)
[2018-12-21] MEDS: MULTIVITAMINS 30 ML CUP NGT (10:30)
[2018-12-21 12:43] LABS: AMMONIA 62 umol/l (9-30)
[2018-12-22 05:59] LABS: ADD MAN DIFF? NO
[2018-12-22 06:10] LABS: WHITE BLOOD COUNT 2.7 10^3/ul (4.8-10.8)
[2018-12-22 06:10] LABS: ABNORMAL IP MESSAGE 1; BASOPHILS % 1.1 % (0.0-2.0); EOSINOPHILS # 0.2 10^3/ul (0.0-0.5); EOSINOPHILS % 7.4 % (0.0-7.0); HEMATOCRIT 28.4 % (42.0-52.0); HEMOGLOBIN 9.4 g/dl (14.0-18.0); LYMPHOCYTES # 0.4 10^3/ul (0.8-2.9); LYMPHOCYTES % 13.8 % (15.0-51.0); MEAN CORPUSCULAR HEMOGLOBIN 33.6 pg (29.0-33.0); MEAN CORPUSCULAR HGB CONC 33.1 g/dl (32.0-37.0); MEAN CORPUSCULAR VOLUME 101.4 fl (82.0-101.0); MONOCYTE # 0.6 10^3/ul (0.3-0.9); MONOCYTES % 20.4 % (0.0-11.0); NEUTROPHIL # 1.5 10^3/ul (1.6-7.5); NEUTROPHILS % 56.6 % (39.0-77.0); PLATELET COUNT 33 10^3/UL (140-415); POSITIVE DIFF @See below; RED CELL DISTRIBUTION WIDTH 18.6 % (11.5-14.5)
[2018-12-22] MEDS: LANSOPRAZOLE 30 MG CAP GTB (06:27)
[2018-12-22 07:08] LABS: ANION GAP 5 (5-13); BLOOD UREA NITROGEN 14 mg/dl (7-20); CALCIUM 7.9 mg/dl (8.4-10.2); CARBON DIOXIDE 21 mmol/L (21-31); CHLORIDE 115 mmol/L (97-110); CREATININE 0.43 mg/dl (0.61-1.24); Estimated GFR > 60 mL/min (>60); GLUCOSE 78 mg/dl (70-220); POTASSIUM 3.7 mmol/L (3.5-5.1); SODIUM 141 mmol/L (135-144)
[2018-12-22] MEDS: LEVETIRACETAM 1000 MG (PMX) 100 ML IVPB ×2 (08:07→21:41)
[2018-12-22] MEDS: MULTIVITAMINS 30 ML CUP NGT (08:07)
[2018-12-22] MEDS: LACTULOSE 30ML CUP PO (17:22)
[2018-12-23] MEDS: LACTULOSE 30ML CUP PO ×5 (00:53→23:37)
[2018-12-23] MEDS: LANSOPRAZOLE 30 MG CAP GTB (05:45)
[2018-12-23 06:01] LABS: WHITE BLOOD COUNT 2.4 10^3/ul (4.8-10.8)
[2018-12-23 06:01] LABS: ABNORMAL IP MESSAGE 1; HEMATOCRIT 29.4 % (42.0-52.0); HEMOGLOBIN 9.8 g/dl (14.0-18.0); MEAN CORPUSCULAR HEMOGLOBIN 33.8 pg (29.0-33.0); MEAN CORPUSCULAR HGB CONC 33.3 g/dl (32.0-37.0); MEAN CORPUSCULAR VOLUME 101.4 fl (82.0-101.0); MEAN PLATELET VOLUME 10.7 fl (7.4-10.4); PLATELET COUNT 34 10^3/UL (140-415); POSITIVE DIFF @See below; RED CELL DISTRIBUTION WIDTH 18.8 % (11.5-14.5)
[2018-12-23 06:14] LABS: ADD MAN DIFF? YES
[2018-12-23 06:23] LABS: PHOSPHORUS 3.5 mg/dl (2.5-4.9)
[2018-12-23 06:23] LABS: MAGNESIUM 1.7 mg/dl (1.7-2.5)
[2018-12-23 06:24] LABS: AMMONIA 58 umol/l (9-30)
[2018-12-23 06:34] LABS: ANION GAP 4 (5-13); BLOOD UREA NITROGEN 10 mg/dl (7-20); CALCIUM 7.6 mg/dl (8.4-10.2); CARBON DIOXIDE 23 mmol/L (21-31); CHLORIDE 113 mmol/L (97-110); CREATININE 0.46 mg/dl (0.61-1.24); Estimated GFR > 60 mL/min (>60); GLUCOSE 82 mg/dl (70-220); POTASSIUM 3.3 mmol/L (3.5-5.1); SODIUM 140 mmol/L (135-144)
[2018-12-23 07:32] LABS: ANISOCYTOSIS 1+ (0-0); BAND NEUTROPHILS #M 0.4 10^3/ul (0.0-0.6); BAND NEUTROPHILS % (M) 18 % (0-4); BASOPHILS % (M) 3 % (0-2); BURR CELLS 2+ (0-0); EOSINOPHILS % (M) 6 % (0-7); GIANT THROMBO% (M) 4 % (0-0); LYMPHOCYTES #M 0.3 10^3/ul (0.8-2.9); LYMPHOCYTES % (M) 13 % (15-51); METAMYELOCYTES %M 1 % (0-0); MONOCYTE #M 0.3 10^3/ul (0.3-0.9); MONOCYTES % (M) 15 % (0-11); MYELOCYTES % (M) 1 % (0-0); PLATELET ESTIMATE DECREASED; POIKILOCYTOSIS 2+ (0-0); POLYCHROMASIA 1+ (0-0); RBC MORPHOLOGY COMMENT @See below; SEGMENTED NEUTROPHILS (M) % 43 % (39-77); SMUDGE%M 30 % (0-0); TOXIC GRANULATION 1+ (0-0); WBC MORPHOLOGY COMMENT @See below
[2018-12-23] MEDS: LEVETIRACETAM 1000 MG (PMX) 100 ML IVPB ×2 (07:37→22:18)
[2018-12-23] MEDS: MULTIVITAMINS 30 ML CUP NGT (07:38)
[2018-12-23] MEDS: POTASSIUM CHLORIDE 50 ML IVPB ×3 (11:24→13:04)
[2018-12-24 05:39] LABS: ADD MAN DIFF? NO
[2018-12-24] MEDS: LANSOPRAZOLE 30 MG CAP GTB (05:44)
[2018-12-24] MEDS: LACTULOSE 30ML CUP PO ×3 (05:44→17:58)
[2018-12-24 05:45] LABS: WHITE BLOOD COUNT 2.8 10^3/ul (4.8-10.8)
[2018-12-24 05:45] LABS: ABNORMAL IP MESSAGE 1; BASOPHILS % 0.7 % (0.0-2.0); EOSINOPHILS # 0.3 10^3/ul (0.0-0.5); HEMATOCRIT 28.4 % (42.0-52.0); HEMOGLOBIN 9.6 g/dl (14.0-18.0); LYMPHOCYTES # 0.6 10^3/ul (0.8-2.9); LYMPHOCYTES % 20.8 % (15.0-51.0); MEAN CORPUSCULAR HEMOGLOBIN 34.2 pg (29.0-33.0); MEAN CORPUSCULAR HGB CONC 33.8 g/dl (32.0-37.0); MEAN CORPUSCULAR VOLUME 101.1 fl (82.0-101.0); MEAN PLATELET VOLUME 10.8 fl (7.4-10.4); MONOCYTE # 0.5 10^3/ul (0.3-0.9); MONOCYTES % 19.4 % (0.0-11.0); NEUTROPHIL # 1.4 10^3/ul (1.6-7.5); NEUTROPHILS % 48.4 % (39.0-77.0); PLATELET COUNT 34 10^3/UL (140-415); POSITIVE DIFF @See below; RED BLOOD COUNT 2.81 10^6/ul (4.70-6.10); RED CELL DISTRIBUTION WIDTH 18.9 % (11.5-14.5)
[2018-12-24 06:23] LABS: ANION GAP 4 (5-13); BLOOD UREA NITROGEN 8 mg/dl (7-20); CALCIUM 7.3 mg/dl (8.4-10.2); CARBON DIOXIDE 24 mmol/L (21-31); CHLORIDE 110 mmol/L (97-110); CREATININE 0.39 mg/dl (0.61-1.24); Estimated GFR > 60 mL/min (>60); GLUCOSE 76 mg/dl (70-220); POTASSIUM 3.6 mmol/L (3.5-5.1); SODIUM 138 mmol/L (135-144)
[2018-12-24] MEDS: MULTIVITAMINS 30 ML CUP NGT (08:39)
[2018-12-24] MEDS: LEVETIRACETAM 1000 MG (PMX) 100 ML IVPB ×2 (10:07→21:23)
[2018-12-25] MEDS: LACTULOSE 30ML CUP PO ×5 (00:02→23:43)
[2018-12-25] MEDS: LANSOPRAZOLE 30 MG CAP GTB (05:27)
[2018-12-25 05:54] LABS: ADD MAN DIFF? NO
[2018-12-25 05:57] LABS: WHITE BLOOD COUNT 2.4 10^3/ul (4.8-10.8)
[2018-12-25 05:57] LABS: ABNORMAL IP MESSAGE 1; BASOPHILS % 0.8 % (0.0-2.0); EOSINOPHILS # 0.3 10^3/ul (0.0-0.5); EOSINOPHILS % 11.5 % (0.0-7.0); HEMATOCRIT 26.9 % (42.0-52.0); HEMOGLOBIN 9.1 g/dl (14.0-18.0); LYMPHOCYTES # 0.5 10^3/ul (0.8-2.9); LYMPHOCYTES % 20.9 % (15.0-51.0); MEAN CORPUSCULAR HEMOGLOBIN 34.2 pg (29.0-33.0); MEAN CORPUSCULAR HGB CONC 33.8 g/dl (32.0-37.0); MEAN CORPUSCULAR VOLUME 101.1 fl (82.0-101.0); MEAN PLATELET VOLUME 11.2 fl (7.4-10.4); MONOCYTE # 0.5 10^3/ul (0.3-0.9); MONOCYTES % 18.9 % (0.0-11.0); NEUTROPHIL # 1.2 10^3/ul (1.6-7.5); NEUTROPHILS % 47.1 % (39.0-77.0); POSITIVE DIFF @See below; RED BLOOD COUNT 2.66 10^6/ul (4.70-6.10); RED CELL DISTRIBUTION WIDTH 18.6 % (11.5-14.5)
[2018-12-25 06:08] LABS: PLATELET COUNT 29 10^3/UL (140-415)
[2018-12-25 06:30] LABS: AMMONIA 49 umol/l (9-30)
[2018-12-25 06:32] LABS: ANION GAP 4 (5-13); BLOOD UREA NITROGEN 7 mg/dl (7-20); CALCIUM 7.4 mg/dl (8.4-10.2); CARBON DIOXIDE 23 mmol/L (21-31); CHLORIDE 108 mmol/L (97-110); CREATININE 0.39 mg/dl (0.61-1.24); Estimated GFR > 60 mL/min (>60); GLUCOSE 76 mg/dl (70-220); MAGNESIUM 1.7 mg/dl (1.7-2.5); POTASSIUM 3.7 mmol/L (3.5-5.1); SODIUM 135 mmol/L (135-144)
[2018-12-25 06:32] LABS: PHOSPHORUS 2.8 mg/dl (2.5-4.9)
[2018-12-25] MEDS: MULTIVITAMINS 30 ML CUP NGT (09:00)
[2018-12-25] MEDS: LEVETIRACETAM 1000 MG (PMX) 100 ML IVPB ×2 (09:00→21:03)
[2018-12-26] MEDS: LACTULOSE 30ML CUP PO ×3 (05:24→18:00)
[2018-12-26] MEDS: LANSOPRAZOLE 30 MG CAP GTB (05:24)
[2018-12-26] MEDS: LEVETIRACETAM 1000 MG (PMX) 100 ML IVPB ×2 (09:02→20:34)
[2018-12-26] MEDS: MULTIVITAMINS 30 ML CUP NGT (09:02)
[2018-12-26] MEDS ORDERED: ACETAMINOPHEN 325 MG TAB PO (16:30)
[2018-12-26] MEDS: HYDROCODONE/APAP (5/325) TAB PO (16:42)
[2018-12-27] MEDS: LACTULOSE 30ML CUP PO ×4 (01:22→17:47)
[2018-12-27 05:19] LABS: ADD MAN DIFF? NO
[2018-12-27 05:26] LABS: WHITE BLOOD COUNT 2.1 10^3/ul (4.8-10.8)
[2018-12-27 05:26] LABS: ABNORMAL IP MESSAGE 1; BASOPHILS % 1.4 % (0.0-2.0); EOSINOPHILS # 0.3 10^3/ul (0.0-0.5); EOSINOPHILS % 14.9 % (0.0-7.0); HEMATOCRIT 27.4 % (42.0-52.0); HEMOGLOBIN 9.1 g/dl (14.0-18.0); LYMPHOCYTES # 0.5 10^3/ul (0.8-2.9); LYMPHOCYTES % 23.6 % (15.0-51.0); MEAN CORPUSCULAR HEMOGLOBIN 33.2 pg (29.0-33.0); MEAN CORPUSCULAR HGB CONC 33.2 g/dl (32.0-37.0); MEAN PLATELET VOLUME 10.5 fl (7.4-10.4); MONOCYTE # 0.3 10^3/ul (0.3-0.9); NEUTROPHIL # 0.9 10^3/ul (1.6-7.5); NEUTROPHILS % 42.8 % (39.0-77.0); POSITIVE DIFF @See below; RED BLOOD COUNT 2.74 10^6/ul (4.70-6.10); RED CELL DISTRIBUTION WIDTH 18.6 % (11.5-14.5)
[2018-12-27 05:33] LABS: PHOSPHORUS 3.2 mg/dl (2.5-4.9)
[2018-12-27 05:33] LABS: MAGNESIUM 1.9 mg/dl (1.7-2.5)
[2018-12-27 05:35] LABS: ANION GAP 2 (5-13); BLOOD UREA NITROGEN 7 mg/dl (7-20); CALCIUM 7.7 mg/dl (8.4-10.2); CARBON DIOXIDE 24 mmol/L (21-31); CHLORIDE 110 mmol/L (97-110); CREATININE 0.35 mg/dl (0.61-1.24); Estimated GFR > 60 mL/min (>60); GLUCOSE 77 mg/dl (70-220); POTASSIUM 3.8 mmol/L (3.5-5.1); SODIUM 136 mmol/L (135-144)
[2018-12-27 05:43] LABS: PLATELET COUNT 33 10^3/UL (140-415)
[2018-12-27 05:44] LABS: MONOCYTES % 15.9 % (0.0-11.0)
[2018-12-27] MEDS: LANSOPRAZOLE 30 MG CAP GTB (06:08)
[2018-12-27 06:20] LABS: AMMONIA 69 umol/l (9-30)
[2018-12-27] MEDS: MULTIVITAMINS 30 ML CUP NGT (09:03)
[2018-12-27] MEDS: LEVETIRACETAM 1000 MG (PMX) 100 ML IVPB ×2 (09:04→20:47)
[2018-12-28] MEDS: LACTULOSE 30ML CUP PO ×4 (00:11→17:38)
[2018-12-28] MEDS: LANSOPRAZOLE 30 MG CAP GTB (05:21)
[2018-12-28] MEDS: MULTIVITAMINS 30 ML CUP NGT (08:16)
[2018-12-28] MEDS: LEVETIRACETAM 1000 MG (PMX) 100 ML IVPB ×2 (08:16→20:41)
[2018-12-29] MEDS: LACTULOSE 30ML CUP PO ×4 (00:27→18:55)
[2018-12-29] MEDS: LANSOPRAZOLE 30 MG CAP GTB (05:14)
[2018-12-29] MEDS: HYDROCODONE/APAP (5/325) TAB PO (10:14)
[2018-12-29] MEDS: MULTIVITAMINS 30 ML CUP NGT (10:14)
[2018-12-29] MEDS: LEVETIRACETAM 1000 MG (PMX) 100 ML IVPB ×2 (10:14→21:00)
[2018-12-30] MEDS: LACTULOSE 30ML CUP PO ×4 (00:41→18:38)
[2018-12-30] MEDS: LANSOPRAZOLE 30 MG CAP GTB (05:18)
[2018-12-30] MEDS: LEVETIRACETAM 1000 MG (PMX) 100 ML IVPB ×2 (09:03→20:14)
[2018-12-30] MEDS: MULTIVITAMINS 30 ML CUP NGT (09:03)
[2018-12-31] MEDS: LACTULOSE 30ML CUP PO ×4 (00:01→18:16)
[2018-12-31] MEDS: LANSOPRAZOLE 30 MG CAP GTB (06:01)
[2018-12-31] MEDS: LEVETIRACETAM 1000 MG (PMX) 100 ML IVPB ×2 (09:23→20:52)
[2018-12-31] MEDS: MULTIVITAMINS 30 ML CUP NGT (09:24)
[2019-01-01] MEDS: LACTULOSE 30ML CUP PO ×4 (00:30→18:02)
[2019-01-01] MEDS: LANSOPRAZOLE 30 MG CAP GTB (05:38)
[2019-01-01] MEDS: MULTIVITAMINS 30 ML CUP NGT (09:00)
[2019-01-01] MEDS: LEVETIRACETAM 1000 MG (PMX) 100 ML IVPB ×2 (09:13→20:16)
[2019-01-01] MEDS: MULTIVITAMINS 30 ML CUP PO (09:20)
[2019-01-02] MEDS: LACTULOSE 30ML CUP PO ×4 (00:08→17:53)
[2019-01-02] MEDS: PANTOPRAZOLE (EC) 40 MG TAB PO (05:56)
[2019-01-02] MEDS: MULTIVITAMINS 30 ML CUP PO (09:19)
[2019-01-02] MEDS: LEVETIRACETAM 1000 MG (PMX) 100 ML IVPB ×2 (09:20→20:04)
[2019-01-03] MEDS: LACTULOSE 30ML CUP PO ×5 (00:28→23:57)
[2019-01-03] MEDS: PANTOPRAZOLE (EC) 40 MG TAB PO (05:42)
[2019-01-03] MEDS: LEVETIRACETAM 1000 MG (PMX) 100 ML IVPB ×2 (08:24→20:13)
[2019-01-03] MEDS: MULTIVITAMINS 30 ML CUP PO (08:24)
[2019-01-04] MEDS: PANTOPRAZOLE (EC) 40 MG TAB PO (05:28)
[2019-01-04] MEDS: LACTULOSE 30ML CUP PO ×4 (05:28→23:53)
[2019-01-04] MEDS: LEVETIRACETAM 1000 MG (PMX) 100 ML IVPB ×2 (08:34→21:11)
[2019-01-04] MEDS: MULTIVITAMINS 30 ML CUP PO (08:34)
[2019-01-05] MEDS: LACTULOSE 30ML CUP PO ×3 (05:12→18:00)
[2019-01-05] MEDS: PANTOPRAZOLE (EC) 40 MG TAB PO (05:12)
[2019-01-05] MEDS: MULTIVITAMINS 30 ML CUP PO (09:20)
[2019-01-05] MEDS: LEVETIRACETAM 1000 MG (PMX) 100 ML IVPB ×2 (09:20→20:59)
[2019-01-06] MEDS: LACTULOSE 30ML CUP PO ×5 (00:23→17:30)
[2019-01-06] MEDS: PANTOPRAZOLE (EC) 40 MG TAB PO (06:24)
[2019-01-06] MEDS: MULTIVITAMINS 30 ML CUP PO (09:07)
[2019-01-06] MEDS: LEVETIRACETAM 1000 MG (PMX) 100 ML IVPB ×2 (09:13→20:09)
[2019-01-07] MEDS: LACTULOSE 30ML CUP PO ×4 (01:04→17:58)
[2019-01-07] MEDS: PANTOPRAZOLE (EC) 40 MG TAB PO (05:29)
[2019-01-07] MEDS: MULTIVITAMINS 30 ML CUP PO (09:23)
[2019-01-07] MEDS: LEVETIRACETAM 1000 MG (PMX) 100 ML IVPB ×2 (09:24→20:40)
[2019-01-08] MEDS: LACTULOSE 30ML CUP PO ×5 (00:15→23:45)
[2019-01-08] MEDS: PANTOPRAZOLE (EC) 40 MG TAB PO (05:15)
[2019-01-08] MEDS: MULTIVITAMINS 30 ML CUP PO (09:10)
[2019-01-08] MEDS: LEVETIRACETAM 1000 MG (PMX) 100 ML IVPB ×2 (09:10→20:52)
[2019-01-09 05:23] LABS: ADD MAN DIFF? NO
[2019-01-09 05:28] LABS: ABNORMAL IP MESSAGE 1; BASOPHILS % 2.3 % (0.0-2.0); EOSINOPHILS # 0.2 10^3/ul (0.0-0.5); EOSINOPHILS % 13.1 % (0.0-7.0); HEMATOCRIT 26.5 % (42.0-52.0); HEMOGLOBIN 8.7 g/dl (14.0-18.0); LYMPHOCYTES # 0.5 10^3/ul (0.8-2.9); LYMPHOCYTES % 30.7 % (15.0-51.0); MEAN CORPUSCULAR HEMOGLOBIN 33.1 pg (29.0-33.0); MEAN CORPUSCULAR HGB CONC 32.8 g/dl (32.0-37.0); MEAN CORPUSCULAR VOLUME 100.8 fl (82.0-101.0); MEAN PLATELET VOLUME 10.5 fl (7.4-10.4); MONOCYTE # 0.3 10^3/ul (0.3-0.9); MONOCYTES % 14.2 % (0.0-11.0); NEUTROPHIL # 0.7 10^3/ul (1.6-7.5); NEUTROPHILS % 39.7 % (39.0-77.0); POSITIVE DIFF @See below; RED BLOOD COUNT 2.63 10^6/ul (4.70-6.10); RED CELL DISTRIBUTION WIDTH 17.6 % (11.5-14.5)
[2019-01-09 05:28] LABS: WHITE BLOOD COUNT 1.8 10^3/ul (4.8-10.8)
[2019-01-09 05:45] LABS: ANION GAP 3 (5-13); BLOOD UREA NITROGEN 6 mg/dl (7-20); CALCIUM 7.3 mg/dl (8.4-10.2); CARBON DIOXIDE 24 mmol/L (21-31); CHLORIDE 113 mmol/L (97-110); CREATININE 0.39 mg/dl (0.61-1.24); Estimated GFR > 60 mL/min (>60); GLUCOSE 72 mg/dl (70-220); POTASSIUM 3.6 mmol/L (3.5-5.1); SODIUM 140 mmol/L (135-144)
[2019-01-09 05:46] LABS: PLATELET COUNT 29 10^3/UL (140-415)
[2019-01-09 06:05] LABS: AMMONIA 84 umol/l (9-30)
[2019-01-09 06:05] LABS: MAGNESIUM 1.8 mg/dl (1.7-2.5)
[2019-01-09 06:05] LABS: PHOSPHORUS 3.6 mg/dl (2.5-4.9)
[2019-01-09] MEDS: LACTULOSE 30ML CUP PO ×3 (06:16→18:00)
[2019-01-09] MEDS: PANTOPRAZOLE (EC) 40 MG TAB PO (06:17)
[2019-01-09] MEDS: MULTIVITAMINS 30 ML CUP PO (09:10)
[2019-01-09] MEDS: LEVETIRACETAM 1000 MG (PMX) 100 ML IVPB ×2 (09:10→20:26)
[2019-01-10] MEDS: LACTULOSE 30ML CUP PO ×4 (00:12→18:00)
[2019-01-10] MEDS: PANTOPRAZOLE (EC) 40 MG TAB PO (06:20)
[2019-01-10] MEDS: MULTIVITAMINS 30 ML CUP PO (08:43)
[2019-01-10] MEDS: LEVETIRACETAM 1000 MG (PMX) 100 ML IVPB ×2 (08:43→20:04)
[2019-01-11] MEDS: LACTULOSE 30ML CUP PO ×4 (00:19→17:11)
[2019-01-11] MEDS: PANTOPRAZOLE (EC) 40 MG TAB PO (05:37)
[2019-01-11] MEDS: MULTIVITAMINS 30 ML CUP PO (09:17)
[2019-01-11] MEDS: LEVETIRACETAM 1000 MG (PMX) 100 ML IVPB (09:18)
== END 2019-01-11 19:05 | DRG 64 ==
LOC: ICU 21:09 → E/R 16:29 → 6WM 12-14 21:55 → 2NE 12-23 18:20
PROVIDERS: Internal Medicine
PROC: 5A1955Z Respiratory Ventilation, Greater than 96 Consecutive Hours (ICD-10-PCS; principal; 2018-12-08)
PROC: 0BH17EZ Insertion of Endotracheal Airway into Trachea, Via Natural or Artificial Opening (ICD-10-PCS; 2018-12-08)
PROC: 05HM33Z Insertion of Infusion Device into Right Internal Jugular Vein, Percutaneous Approach (ICD-10-PCS; 2018-12-12)
PROC: 02HV33Z Insertion of Infusion Device into Superior Vena Cava, Percutaneous Approach (ICD-10-PCS; 2018-12-12)
DX: I62.01 Nontraumatic acute subdural hemorrhage (principal); G92 Toxic encephalopathy; J96.90 Respiratory failure, unspecified, unspecified whether with hypoxia or hypercapnia; D68.9 Coagulation defect, unspecified; D61.818 Other pancytopenia; I62.03 Nontraumatic chronic subdural hemorrhage; K74.60 Unspecified cirrhosis of liver; B19.20 Unspecified viral hepatitis C without hepatic coma; K72.90 Hepatic failure, unspecified without coma; D69.6 Thrombocytopenia, unspecified; I50.9 Heart failure, unspecified; G40.909 Epilepsy, unspecified, not intractable, without status epilepticus; R19.01 Right upper quadrant abdominal swelling, mass and lump; D64.89 Other specified anemias; R13.10 Dysphagia, unspecified; R47.81 Slurred speech
CPT/HCPCS: 31500; 36415; 36430; 36569; 36600; 70450; 71045; 72125; 74018; 74230; 76700; 76937; 80048; 80053; 80307; 81003; 82105; 82140; 82270; 82607; 82728; 82746; 82803; 82962; 83036; 83540; 83605; 83735; 84100; 84484; 85025; 85610; 85730; 86644; 86850; 86900; 86901; 86945; 87040-91; 87081; 87086; 92507; 92526; 92610; 92611; 93005; 94002; 94003; 94770; 96374; 97110; 97116; 97162; 97530; 99291-25